=== PATIENT | female | born 1960 | race Caucasian/White ===

== ENCOUNTER 2019-11-07 12:07 | Observation (INO) | payer MEDICARE, MEDICAID ==
[~2019-11-07] VITALS: Ht 175.3 cm; Wt 136.4 kg
[~2019-11-07 12:07] MED LIST: DULO60CA65 PO; TRAZ-251 PO
[2019-11-07] MEDS ORDERED: aspirin 81mg tab.chew PO ONE (12:25)
[2019-11-07] MEDS: nitroGLYCERIN 0.4mg SUBLingual tab SL PRN ×2 (12:36→14:09)
[2019-11-07 12:57] LABS: BASOPHILS % (AUTO) 0.2 % (0-1); EOSINOPHILS # (AUTO) 0.3 X10'3 (0-0.9); EOSINOPHILS % (AUTO) 4.2 % (0-6); HEMATOCRIT 43.3 % (35.0-45.0); HEMOGLOBIN 14.5 g/dl (12.0-16.0); LYMPHOCYTES # (AUTO) 1.7 X10'3 (1.1-4.8); LYMPHOCYTES % (AUTO) 24.8 % (21-51); MEAN CORPUSCULAR HEMOGLOBIN 31.3 PG (27.0-31.0); MEAN CORPUSCULAR HGB CONC 33.6 g/dL (33.0-36.5); MEAN CORPUSCULAR VOLUME 93.3 FL (78-98); MEAN PLATELET VOLUME 7.7 FL (7.4-10.4); MONOCYTES # (AUTO) 0.6 X10'3 (0-0.9); MONOCYTES % (AUTO) 8.6 % (2-12); NEUTROPHILS # (AUTO) 4.3 X10'3 (1.8-7.7); NEUTROPHILS % (AUTO) 62.2 % (42-75); PLATELET COUNT 233 X10'3 (140-440); RED BLOOD COUNT 4.64 X10'6 (4.20-5.60); RED CELL DISTRIBUTION WIDTH 13.7 % (11.5-14.5); WHITE BLOOD COUNT 6.9 X10'3 (4.5-11.0)
[2019-11-07 13:00] LABS: D-DIMER 0.37 MG/L FEU (0-0.50)
[2019-11-07 13:12] LABS: ALANINE AMINOTRANSFERASE 25 U/L (12-78); ALBUMIN 3.2 G/DL (3.4-5.0); ALBUMIN/GLOBULIN RATIO 0.9 (1.1-1.5); ALKALINE PHOSPHATASE 64 IU/L (46-116); ANION GAP 5 (8-16); ASPARTATE AMINO TRANSFERASE 17 U/L (10-37); BILIRUBIN,TOTAL 0.3 MG/DL (0.1-1.0); BLOOD UREA NITROGEN 12 MG/DL (7-18); BUN/CREATININE RATIO 13.6 (6.6-38.0); CALCIUM 8.7 MG/DL (8.5-10.1); CHLORIDE 104 MMOL/L (99-107); CREATININE 0.88 MG/DL (0.40-0.90); GLUCOSE 95 MG/DL (70-104); SODIUM 138 MMOL/L (135-145); TOTAL CARBON DIOXIDE 29.3 MMOL/L (24-32); TOTAL PROTEIN 6.7 G/DL (6.4-8.2); eGFR 65 ML/MIN
[2019-11-07 13:14] LABS: POTASSIUM 4.1 MMOL/L (3.5-5.1)
[2019-11-07] MEDS ORDERED: acetaminophen 325mg tablet PO PRN (14:55)
[2019-11-07] MEDS ORDERED: aminophylline 250mg/10ml inj. IV PRN (14:55)
[2019-11-07] MEDS ORDERED: nitroGLYCERIN 0.4mg SUBLingual tab SL PRN ×2 (14:55→15:05)
[2019-11-07] MEDS ORDERED: mag hydrox/Alum hydrox/simeth 30ml oral suspension PO PRN (14:55)
[2019-11-07] MEDS ORDERED: magnesium hydroxide 30ml (MOM) UD suspension PO PRN (14:55)
[2019-11-07] MEDS ORDERED: regadenoson 0.4mg/5ml syringe IV PRN (14:55)
[2019-11-07] MEDS ORDERED: morphine 2 MG/ML inj. syringe IV PRN (14:55)
[2019-11-07] MEDS ORDERED: metoprolol tartrate 1mg/ml inj IV PRN (14:55)
[2019-11-07] MEDS ORDERED: ondansetron/PF 4mg/2ml inj IV PRN (14:55)
[2019-11-07] MEDS: normal saline 1000ml 1,000 ML IV SCH (15:25)
[2019-11-07] MEDS ORDERED: DULO60CA65 PO (15:36)
[2019-11-07] MEDS ORDERED: TRAZ-256 PO (15:36)
[2019-11-07 18:00] VITALS: BP 139/75
--- NOTE | 2019-11-07 18:10 | NUR ---
Patient in room MED 310. I have received report from ADELA RAZO and had the opportunity to ask questions and assume patient care.
[2019-11-07] MEDS: morphine 2 MG/ML inj. syringe IV PRN (19:55)
[2019-11-07] MEDS: heparin, porcine 5000 units/ml vial SQ SCH (19:59)
[2019-11-07] MEDS ORDERED: traZODone 50mg tablet PO SCH (21:00)
[2019-11-07 22:00] VITALS: BP 145/75
[2019-11-08] VITALS (12 sets, daily range): BP systolic 107–149; BP diastolic 68–77
[2019-11-08] MEDS: normal saline 1000ml 1,000 ML IV SCH (00:54)
[2019-11-08] MEDS: morphine 2 MG/ML inj. syringe IV PRN ×2 (00:56→07:15)
[2019-11-08 01:09] LABS: BASOPHILS # (AUTO) 0.1 X10'3 (0-0.2); BASOPHILS % (AUTO) 1.1 % (0-1); EOSINOPHILS # (AUTO) 0.3 X10'3 (0-0.9); EOSINOPHILS % (AUTO) 4.1 % (0-6); HEMATOCRIT 42.6 % (35.0-45.0); HEMOGLOBIN 14.4 g/dl (12.0-16.0); LYMPHOCYTES # (AUTO) 1.9 X10'3 (1.1-4.8); LYMPHOCYTES % (AUTO) 27.1 % (21-51); MEAN CORPUSCULAR HEMOGLOBIN 31.5 PG (27.0-31.0); MEAN CORPUSCULAR HGB CONC 33.9 g/dL (33.0-36.5); MEAN PLATELET VOLUME 8.1 FL (7.4-10.4); MONOCYTES # (AUTO) 0.6 X10'3 (0-0.9); MONOCYTES % (AUTO) 7.8 % (2-12); NEUTROPHILS # (AUTO) 4.3 X10'3 (1.8-7.7); NEUTROPHILS % (AUTO) 59.9 % (42-75); PLATELET COUNT 234 X10'3 (140-440); RED BLOOD COUNT 4.58 X10'6 (4.20-5.60); RED CELL DISTRIBUTION WIDTH 14.1 % (11.5-14.5); WHITE BLOOD COUNT 7.2 X10'3 (4.5-11.0)
[2019-11-08 01:27] LABS: ALBUMIN 3.2 G/DL (3.4-5.0); ANION GAP 8 (8-16); BLOOD UREA NITROGEN 13 MG/DL (7-18); BUN/CREATININE RATIO 17.1 (6.6-38.0); CALCIUM 9.1 MG/DL (8.5-10.1); CHLORIDE 105 MMOL/L (99-107); CREATININE 0.76 MG/DL (0.40-0.90); GLUCOSE 110 MG/DL (70-104); POTASSIUM 3.9 MMOL/L (3.5-5.1); SODIUM 139 MMOL/L (135-145); TOTAL CARBON DIOXIDE 26.4 MMOL/L (24-32); eGFR 77 ML/MIN
--- NOTE | 2019-11-08 06:30 | NUR ---
Problems reprioritized. Patient report given, questions answered & plan of care reviewed with ADELA RAZO.
[2019-11-08] MEDS ORDERED: duloxetine 30mg CAPSULE.DR PO SCH (08:00)
[2019-11-08] MEDS ORDERED: aspirin 81mg tablet.DR PO SCH (08:00)
[2019-11-08] MEDS ORDERED: atorvastatin 20mg tablet PO SCH (08:00)
[2019-11-08] MEDS: heparin, porcine 5000 units/ml vial SQ SCH (08:27)
== END 2019-11-08 14:56 | disposition home or self-care (01) ==
LOC: ER 12:07 → ED HOLD 14:54 → MED 3N 17:50
PROVIDERS: ADMIT Family Medicine; ATTEND Family Medicine
DX: R07.89 Other chest pain (principal); I10 Essential (primary) hypertension; E11.9 Type 2 diabetes mellitus without complications; I25.2 Old myocardial infarction; I25.10 Atherosclerotic heart disease of native coronary artery without angina pectoris; F31.9 Bipolar disorder, unspecified; Z79.899 Other long term (current) drug therapy
CPT/HCPCS: 36415; 71045; 78452; 80048; 80053; 82948; 83880; 84484; 85025; 85379; 87081; 93005; 93017; 93306; 96361; 96372; 96374; 96376; 99285; A9500; G0378; J1644; J2270; J2785; J7030

== ENCOUNTER 2019-11-30 09:28 | Emergency (ER) | payer MEDICARE, MEDICAID ==
[~2019-11-30] VITALS: Ht 175.3 cm; Wt 140.0 kg
[~2019-11-30 09:28] MED LIST changes: -TRAZ-251 PO; +TRAZ-256 PO
[2019-11-30 10:13] LABS: BASOPHILS # (AUTO) 0.1 X10'3 (0-0.2); BASOPHILS % (AUTO) 1.4 % (0-1); EOSINOPHILS # (AUTO) 0.3 X10'3 (0-0.9); EOSINOPHILS % (AUTO) 3.6 % (0-6); HEMATOCRIT 44.4 % (35.0-45.0); HEMOGLOBIN 14.9 g/dl (12.0-16.0); LYMPHOCYTES # (AUTO) 1.8 X10'3 (1.1-4.8); LYMPHOCYTES % (AUTO) 19.9 % (21-51); MEAN CORPUSCULAR HGB CONC 33.6 g/dL (33.0-36.5); MEAN CORPUSCULAR VOLUME 92.3 FL (78-98); MEAN PLATELET VOLUME 7.5 FL (7.4-10.4); MONOCYTES # (AUTO) 0.7 X10'3 (0-0.9); MONOCYTES % (AUTO) 8.3 % (2-12); NEUTROPHILS % (AUTO) 66.8 % (42-75); PLATELET COUNT 259 X10'3 (140-440); RED BLOOD COUNT 4.81 X10'6 (4.20-5.60); RED CELL DISTRIBUTION WIDTH 13.7 % (11.5-14.5); WHITE BLOOD COUNT 8.9 X10'3 (4.5-11.0)
[2019-11-30 10:35] LABS: ALANINE AMINOTRANSFERASE 29 U/L (12-78); ALBUMIN 3.5 G/DL (3.4-5.0); ALBUMIN/GLOBULIN RATIO 0.9 (1.1-1.5); ALKALINE PHOSPHATASE 70 IU/L (46-116); ANION GAP 8 (8-16); ASPARTATE AMINO TRANSFERASE 13 U/L (10-37); BILIRUBIN,TOTAL 0.4 MG/DL (0.1-1.0); BLOOD UREA NITROGEN 15 MG/DL (7-18); BUN/CREATININE RATIO 15.3 (6.6-38.0); CALCIUM 8.7 MG/DL (8.5-10.1); CHLORIDE 103 MMOL/L (99-107); CREATININE 0.98 MG/DL (0.40-0.90); GLUCOSE 81 MG/DL (70-104); POTASSIUM 3.4 MMOL/L (3.5-5.1); SODIUM 138 MMOL/L (135-145); TOTAL PROTEIN 7.5 G/DL (6.4-8.2); eGFR 58 ML/MIN
[2019-11-30 10:37] LABS: ETHANOL < 0.010 GM/DL (0.0-0.010)
[2019-11-30 10:40] LABS: ACETAMINOPHEN < 2.0 UG/ML (10-30)
[2019-11-30] MEDS ORDERED: potassium Cl 20 mEq SR tablet PO ONE (10:45)
[2019-11-30 11:00] LABS: URINE HCG NEGATIVE (NEG)
[2019-11-30 11:02] LABS: CLARITY,URINE SLIGHTLY CLOUDY (Clear); COLOR,URINE YELLOW (Yellow); GLUCOSE, URINE NEGATIVE (Neg); KETONES,URINE NEGATIVE (Neg); LEUKOCYTE ESTERASE ,URINE SMALL (Neg); NITRITES, URINE NEGATIVE (Neg); OCCULT BLOOD,URINE NEGATIVE (Neg); PROTEIN,URINE NEGATIVE (Neg); UROBILINOGEN,URINE 0.2 E.U/dL (0.2-1.0)
[2019-11-30 11:03] LABS: UA COLLECTION TYPE CLN CATCH MIDSTREAM
[2019-11-30] MEDS ORDERED: ketorolac trometh inj. 60 MG/2 ML VIAL IM ONE (11:05)
[2019-11-30 11:09] LABS: BACTERIA,URINE 1+ /HPF (Neg); SQUAMOUS EPITHELIAL CELL,UR MANY /LPF (FEW)
[2019-11-30 11:10] LABS: RBC,URINE 0-2 /HPF (0-2); WBC CLUMPS,URINE FEW /HPF (NEGATIVE)
[2019-11-30 11:15] LABS: URINE AMPHETAMINE SCREEN NEGATIVE (Neg); URINE BARBITUATE SCREEN NEGATIVE (Neg); URINE BENZODIAZEPINES SCREEN NEGATIVE (Neg); URINE CANNABINOID SCREEN NEGATIVE (Neg); URINE COCAINE SCREEN NEGATIVE (Neg); URINE METHADONE SCREEN NEGATIVE (Neg); URINE OPIATE SCREEN NEGATIVE (Neg); URINE PHENCYCLIDINE SCREEN NEGATIVE (Neg)
[2019-11-30] MEDS ORDERED: METO-395 PO (11:39)
[2019-11-30] MEDS ORDERED: NAPR-1166 PO (11:39)
[2019-11-30] MEDS ORDERED: TRAZ-251 PO ×2 (11:39→12:33)
[2019-11-30] MEDS ORDERED: traZODone 50mg tablet PO SCH ×2 (12:00→21:00)
[2019-11-30] MEDS: metoprolol succinate 25mg (24-HOUR) SR. Tablet PO SCH (12:40)
[2019-11-30] MEDS: naproxen 375mg tablet PO SCH (12:40)
--- NOTE | 2019-11-30 12:44 | NUR ---
Patient asleep and easily awakens to voice. Patient is pleasant and states she still feels like killing herself. Patient has depressed affect. Patient states she got in a fight with her sister and she is feeling bad about herself. Patient's fiance brought her in. Patient states she is getting next month. Continue to monitor.
--- NOTE | 2019-11-30 13:36 | NUR ---
PT ATE LUNCH AND IS NOW ON THE PHONE WITH FAMILY
--- NOTE | 2019-11-30 14:39 | NUR ---
Patient sleeping supine and snoring. No distress observed. Continue to monitor.
--- NOTE | 2019-11-30 16:20 | NUR ---
Patient ambulatory to BR, steady gait. No distress observed. Continue to monitor.
--- NOTE | 2019-11-30 16:55 | NUR ---
[facility]ish [facility] evaluating patient.
--- NOTE | 2019-11-30 17:31 | NUR ---
Patient has a 5150 placed by TYREL Hinojosa for DTS, as patient is still suicidal.
--- NOTE | 2019-11-30 18:54 | NUR ---
Patient ate most of her dinner and returned to sleep in a mid fowlers position.
--- NOTE | 2019-11-30 21:18 | NUR ---
Patient awoke and took NOC medications. She then ambulated to bathroom to void, no problem with ambulation. Patient tells this patient she is feeling depressed as she had an argument with her fiance. "I'm here to get myself better.
--- NOTE | 2019-11-30 23:24 | NUR ---
Patient sleeping in mid fowlers position. Snoring. In direct view from nursing station.
--- NOTE | 2019-12-01 01:53 | NUR ---
PT APPEARS TO HAVE SOME DIFFICULTY BREATHING WHILE SLEEPING. PT WOKEN UP EASILY. PT REPORTS A HX OF SLEEP APNEA. DOES NOT USE CPAP AT HOME. JOSE F RN SPOKE WITH JL. APPROVED ORDER FOR CPAP. PRIOR TO RESPIRATORY ARRIVAL, PT PLACED ON SPO2 MONITORING. ON ROOM AIR, PT DROPS DOWN TO 89% WHILE SLEEPING.
--- NOTE | 2019-12-01 02:13 | NUR ---
MEDARDO FROM RESPIRATORY AT BEDSIDE TO SET UP CPAP.
--- NOTE | 2019-12-01 03:15 | NUR ---
Patient sleeping quietly, mid fowlers position. CPAP in place.
--- NOTE | 2019-12-01 04:42 | NUR ---
Patient is sleeping quietly on CPAP. No noisy airway now that CPAP is in place. Good color, W/D, no distress.
--- NOTE | 2019-12-01 05:46 | NUR ---
Patient sleeping quietly on CPAP.
[2019-12-01 05:57] VITALS: BP 119/78
[2019-12-01] MEDS: cephalexin 250mg capsule PO SCH ×2 (07:10→08:00)
[2019-12-01] MEDS: naproxen 375mg tablet PO SCH (08:20)
[2019-12-01] MEDS: metoprolol succinate 25mg (24-HOUR) SR. Tablet PO SCH (08:20)
--- NOTE | 2019-12-01 08:24 | NUR ---
PT AWAKE EATING BREAKFAST. AM MEDS GIVEN. NO NEEDS AT THIS TIME
--- NOTE | 2019-12-01 09:03 | NUR ---
PT GIVEN HYGIENE BASIN
== END 2019-12-01 11:15 ==
LOC: ER 09:28
DX: N39.0 Urinary tract infection, site not specified (principal); R45.851 Suicidal ideations; I25.10 Atherosclerotic heart disease of native coronary artery without angina pectoris; I10 Essential (primary) hypertension; I25.2 Old myocardial infarction; F31.9 Bipolar disorder, unspecified; Z60.2 Problems related to living alone; Z59.0 Homelessness; Z79.899 Other long term (current) drug therapy
CPT/HCPCS: 36415; 80053; 80305; 80320; 80329; 81001; 81025; 84443; 85025; 94660; 96372; 99285; J1885; 94760

== ENCOUNTER → 2019-12-06 | Emergency (ER) | payer MEDICARE, MEDICAID ==
[~2019-12-06] VITALS: Ht 175.3 cm; Wt 136.8 kg
[~2019-12-06] MED LIST changes: -DULO60CA65 PO; +METO-395 PO; +NAPR-1166 PO; +QUET50TA22 PO; +TRAZ-251 PO; -TRAZ-256 PO; +VENL75TA4 PO; +metoprolol succinate 25mg (24-HOUR) SR. Tablet PO SCH; +naproxen 375mg tablet PO SCH; +traZODone 50mg tablet PO SCH
[2019-12-06 15:03] VITALS: BP 127/87
[2019-12-06 16:17] LABS: BASOPHILS # (AUTO) 0.1 X10'3 (0-0.2); BASOPHILS % (AUTO) 1.6 % (0-1); EOSINOPHILS # (AUTO) 0.5 X10'3 (0-0.9); EOSINOPHILS % (AUTO) 6.6 % (0-6); HEMATOCRIT 41.6 % (35.0-45.0); HEMOGLOBIN 14.1 g/dl (12.0-16.0); LYMPHOCYTES # (AUTO) 1.7 X10'3 (1.1-4.8); LYMPHOCYTES % (AUTO) 21.1 % (21-51); MEAN CORPUSCULAR HEMOGLOBIN 31.2 PG (27.0-31.0); MEAN CORPUSCULAR HGB CONC 33.9 g/dL (33.0-36.5); MEAN PLATELET VOLUME 7.6 FL (7.4-10.4); MONOCYTES # (AUTO) 0.5 X10'3 (0-0.9); MONOCYTES % (AUTO) 5.8 % (2-12); NEUTROPHILS # (AUTO) 5.2 X10'3 (1.8-7.7); NEUTROPHILS % (AUTO) 64.9 % (42-75); PLATELET COUNT 234 X10'3 (140-440); RED BLOOD COUNT 4.51 X10'6 (4.20-5.60); RED CELL DISTRIBUTION WIDTH 13.5 % (11.5-14.5)
[2019-12-06 16:26] LABS: COLOR,URINE YELLOW (Yellow); GLUCOSE, URINE NEGATIVE (Neg); KETONES,URINE NEGATIVE (Neg); LEUKOCYTE ESTERASE ,URINE TRACE (Neg); NITRITES, URINE NEGATIVE (Neg); OCCULT BLOOD,URINE NEGATIVE (Neg); PH,URINE 5.5 (4.8-8.0); PROTEIN,URINE NEGATIVE (Neg); UROBILINOGEN,URINE 0.2 E.U/dL (0.2-1.0)
[2019-12-06 16:29] LABS: ALANINE AMINOTRANSFERASE 26 U/L (12-78); ALBUMIN 3.2 G/DL (3.4-5.0); ALBUMIN/GLOBULIN RATIO 0.9 (1.1-1.5); ALKALINE PHOSPHATASE 59 IU/L (46-116); ANION GAP 9 (8-16); ASPARTATE AMINO TRANSFERASE 14 U/L (10-37); BILIRUBIN,TOTAL 0.3 MG/DL (0.1-1.0); BLOOD UREA NITROGEN 14 MG/DL (7-18); BUN/CREATININE RATIO 16.1 (6.6-38.0); CALCIUM 8.8 MG/DL (8.5-10.1); CHLORIDE 103 MMOL/L (99-107); CREATININE 0.87 MG/DL (0.40-0.90); GLUCOSE 94 MG/DL (70-104); SODIUM 137 MMOL/L (135-145); TOTAL CARBON DIOXIDE 24.8 MMOL/L (24-32); TOTAL PROTEIN 6.6 G/DL (6.4-8.2); eGFR 66 ML/MIN
[2019-12-06 16:33] LABS: URINE AMPHETAMINE SCREEN NEGATIVE (Neg); URINE BARBITUATE SCREEN NEGATIVE (Neg); URINE BENZODIAZEPINES SCREEN NEGATIVE (Neg); URINE CANNABINOID SCREEN NEGATIVE (Neg); URINE COCAINE SCREEN NEGATIVE (Neg); URINE METHADONE SCREEN NEGATIVE (Neg); URINE OPIATE SCREEN NEGATIVE (Neg); URINE PHENCYCLIDINE SCREEN NEGATIVE (Neg)
[2019-12-06 16:39] LABS: CLARITY,URINE SLIGHTLY CLOUDY (Clear); UA COLLECTION TYPE CLN CATCH MIDSTREAM
[2019-12-06 16:40] LABS: ETHANOL < 0.010 GM/DL (0.0-0.010)
[2019-12-06 16:41] LABS: RBC,URINE NONE SEEN /HPF (0-2)
[2019-12-06 16:42] LABS: BACTERIA,URINE 2+ /HPF (Neg); MUCUS STRANDS MODERATE /LPF (Neg); SQUAMOUS EPITHELIAL CELL,UR MODERATE /LPF (FEW)
--- NOTE | 2019-12-06 16:45 | NUR ---
PT IS CALM NO NEEDS AT THIS TIME, SUPINE IN BED, REGULAR BREATHING OBSERVED
--- NOTE | 2019-12-06 17:21 | NUR ---
FAXED PACKET [facility]
--- NOTE | 2019-12-06 17:48 | NUR ---
PT SUPINE IN BED, EYES CLOSED, REGULAR BREATHING OBSERVED
--- NOTE | 2019-12-06 18:51 | NUR ---
PT UP TO RESTROOM, STEADY GAIT. RETURNED TO BED AFTER COVERING HEAD WITH BLANKETS. IN NO APPARENT DISTRESS
--- NOTE | 2019-12-06 20:29 | NUR ---
[facility] at bedside
== END ==
LOC: ER 14:41
DX: F31.9 Bipolar disorder, unspecified (principal); R45.851 Suicidal ideations; I25.10 Atherosclerotic heart disease of native coronary artery without angina pectoris; I25.2 Old myocardial infarction; Z60.2 Problems related to living alone; Z56.0 Unemployment, unspecified; Z59.0 Homelessness; Z79.899 Other long term (current) drug therapy
CPT/HCPCS: 36415; 80053; 80305; 80320; 81001; 84443; 85025; 99285

== ENCOUNTER 2019-12-15 14:28 | Emergency (ER) | payer MEDICARE, MEDICAID ==
[~2019-12-15] VITALS: Ht 175.3 cm; Wt 136.0 kg
[~2019-12-15 14:28] MED LIST changes: -TRAZ-251 PO; -metoprolol succinate 25mg (24-HOUR) SR. Tablet PO SCH; -naproxen 375mg tablet PO SCH; -traZODone 50mg tablet PO SCH
--- NOTE | 2019-12-15 14:58 | NUR ---
PT USING RESTROOM AT THIS TIME.WE WILL COLLECT URINE SAMPLE.
[2019-12-15 15:10] LABS: URINE HCG NEGATIVE (NEG)
[2019-12-15 15:14] LABS: CLARITY,URINE SLIGHTLY CLOUDY (Clear); COLOR,URINE YELLOW (Yellow); GLUCOSE, URINE NEGATIVE (Neg); KETONES,URINE NEGATIVE (Neg); LEUKOCYTE ESTERASE ,URINE SMALL (Neg); NITRITES, URINE NEGATIVE (Neg); OCCULT BLOOD,URINE NEGATIVE (Neg); PROTEIN,URINE NEGATIVE (Neg); UROBILINOGEN,URINE 0.2 E.U/dL (0.2-1.0)
[2019-12-15 15:16] LABS: URINE AMPHETAMINE SCREEN NEGATIVE (Neg); URINE BARBITUATE SCREEN NEGATIVE (Neg); URINE BENZODIAZEPINES SCREEN NEGATIVE (Neg); URINE CANNABINOID SCREEN NEGATIVE (Neg); URINE COCAINE SCREEN NEGATIVE (Neg); URINE METHADONE SCREEN NEGATIVE (Neg); URINE OPIATE SCREEN NEGATIVE (Neg); URINE PHENCYCLIDINE SCREEN NEGATIVE (Neg)
[2019-12-15 15:18] LABS: UA COLLECTION TYPE VOIDED
[2019-12-15 15:20] LABS: SQUAMOUS EPITHELIAL CELL,UR MANY /LPF (FEW)
[2019-12-15 15:21] LABS: BACTERIA,URINE 1+ /HPF (Neg); WBC,URINE 20-30 /HPF (0-4)
[2019-12-15 15:22] LABS: RBC,URINE 0-2 /HPF (0-2); TRANSITIONAL EPI CELLS,URINE FEW /HPF
--- NOTE | 2019-12-15 15:40 | NUR ---
PT BIB [facility] TO ER FOR SI ,PT WAS HERE ON WEDNESDAY AND WAS D/C THE SAME DAY ,PT AND THOMAS LIVES AT [place],PT STATED THAT SHE HAS PREVIOUS HX OF SUCIDAL ATTEMPT BY TAKING 39 TAB OF TRAZADONE ,PT STATED THAT SHE IS TIRED OF HER LIFE AND WANT TO END BY LIFE ,PT STATED THAT"JENISE MUCH IS GOING ON RGT NOW"PT STATED THAT SHE IS VERY EMOTIONAL ,PT SAID SHE IS SUPPOSED TO GET NEXT MONTH BUT SHE IS PUTTING EVERYTHING BEHIND AND THINKING OF COMMITTING SUICIDE .
[2019-12-15 15:41] LABS: BASOPHILS # (AUTO) 0.1 X10'3 (0-0.2); BASOPHILS % (AUTO) 1.3 % (0-1); EOSINOPHILS # (AUTO) 0.5 X10'3 (0-0.9); EOSINOPHILS % (AUTO) 5.4 % (0-6); HEMATOCRIT 43.8 % (35.0-45.0); HEMOGLOBIN 14.7 g/dl (12.0-16.0); LYMPHOCYTES % (AUTO) 23.8 % (21-51); MEAN CORPUSCULAR HEMOGLOBIN 30.6 PG (27.0-31.0); MEAN CORPUSCULAR HGB CONC 33.5 g/dL (33.0-36.5); MEAN CORPUSCULAR VOLUME 91.1 FL (78-98); MEAN PLATELET VOLUME 7.9 FL (7.4-10.4); MONOCYTES # (AUTO) 0.7 X10'3 (0-0.9); MONOCYTES % (AUTO) 8.9 % (2-12); NEUTROPHILS % (AUTO) 60.6 % (42-75); PLATELET COUNT 226 X10'3 (140-440); RED CELL DISTRIBUTION WIDTH 13.5 % (11.5-14.5); WHITE BLOOD COUNT 8.3 X10'3 (4.5-11.0)
[2019-12-15 16:00] LABS: ALANINE AMINOTRANSFERASE 25 U/L (12-78); ALBUMIN 3.5 G/DL (3.4-5.0); ALKALINE PHOSPHATASE 65 IU/L (46-116); ANION GAP 8 (8-16); ASPARTATE AMINO TRANSFERASE 14 U/L (10-37); BILIRUBIN,TOTAL 0.3 MG/DL (0.1-1.0); BLOOD UREA NITROGEN 23 MG/DL (7-18); CALCIUM 8.9 MG/DL (8.5-10.1); CHLORIDE 104 MMOL/L (99-107); CREATININE 0.92 MG/DL (0.40-0.90); ETHANOL < 0.010 GM/DL (0.0-0.010); GLUCOSE 101 MG/DL (70-104); POTASSIUM 4.3 MMOL/L (3.5-5.1); SODIUM 139 MMOL/L (135-145); TOTAL CARBON DIOXIDE 26.9 MMOL/L (24-32); TOTAL PROTEIN 7.1 G/DL (6.4-8.2); eGFR 62 ML/MIN
--- NOTE | 2019-12-15 16:13 | NUR ---
PT SLEEPING IN THE BED AT THIS TIME.
--- NOTE | 2019-12-15 17:29 | NUR ---
PACKET FAXED TO [facility]
--- NOTE | 2019-12-15 18:41 | NUR ---
PT SPEAKING WITH [facility] REP. PT DOES NOT SEEM TO BE IN ANY DISTRESS OR DISCOMFORT. PT'S - ROBY MEDINA- CALLED FOR PT, WILL HAVE HER CALL HIM BACK [phone].
--- NOTE | 2019-12-15 18:44 | NUR ---
RECIEVED A CALL FROM THE [facility] OFFICE- PT IS ACCEPTED AT [facility]. DUNG FOLEY UPDATED.
--- NOTE | 2019-12-15 18:51 | NUR ---
DUNG JEAN FROM [facility] HERE TO SEE IF PT WOULD LIKE TO BE ADMITTED ON VOLUNTARY STATUS. PT AGREES AND WILL BE GOING UP AROUND 2100 TONIGHT.
--- NOTE | 2019-12-15 20:20 | NUR ---
PT RESTING IN BED AND DOES NOT SEEM TO BE IN ANY DISTRESS OR DISCOMFORT. PT'S FIANCE CALLED AND RN ABLE TO UPDATE HIM. WILL CONT TO MONITOR.
--- NOTE | 2019-12-15 21:06 | NUR ---
PT RESTING IN BED AND IS NOT SHOWING SIGNS OF DISCOMFORT. WILL CONT TO MONITOR.
[2019-12-15 21:44] VITALS: BP 150/91
[2019-12-15] MEDS ORDERED: NAPR375T5 PO (22:07)
[2019-12-15] MEDS ORDERED: QUET50TA22 PO (22:08)
[2019-12-15] MEDS ORDERED: VENL75TA4 PO (22:09)
== END 2019-12-15 21:46 ==
LOC: ER 14:29
DX: R45.851 Suicidal ideations (principal); I25.10 Atherosclerotic heart disease of native coronary artery without angina pectoris; I10 Essential (primary) hypertension; I25.2 Old myocardial infarction; F31.9 Bipolar disorder, unspecified; Z60.2 Problems related to living alone; Z59.0 Homelessness; Z56.0 Unemployment, unspecified; Z79.899 Other long term (current) drug therapy
CPT/HCPCS: 36415; 80053; 80305; 80320; 81001; 81025; 85025; 99285

== ENCOUNTER 2020-01-01 09:31 | Emergency (ER) | payer MEDICARE, MEDICAID ==
[~2020-01-01] VITALS: Ht 175.3 cm; Wt 145.8 kg
[~2020-01-01 09:31] MED LIST changes: +ATOR20TA66 PO; +LAMO25TA5 PO; -METO-395 PO; -NAPR-1166 PO; +NAPR375T5 PO; +QUET25TA34 PO; -QUET50TA22 PO; +TEN1T PO; +VENL150T3 PO; -VENL75TA4 PO
--- NOTE | 2020-01-01 09:45 | NUR ---
pt came over to overflow
[2020-01-01] MEDS ORDERED: QUET25TA PO (10:19)
[2020-01-01] MEDS ORDERED: TEN1T PO (10:19)
[2020-01-01] MEDS ORDERED: VENL150C2 PO (10:19)
[2020-01-01] MEDS ORDERED: LAMO25TA72 PO (10:19)
[2020-01-01] MEDS ORDERED: ATOR20TA66 PO (10:19)
[2020-01-01 10:21] LABS: CLARITY,URINE SLIGHTLY CLOUDY (Clear); COLOR,URINE YELLOW (Yellow); GLUCOSE, URINE NEGATIVE (Neg); KETONES,URINE NEGATIVE (Neg); LEUKOCYTE ESTERASE ,URINE SMALL (Neg); NITRITES, URINE NEGATIVE (Neg); OCCULT BLOOD,URINE NEGATIVE (Neg); PH,URINE 6.5 (4.8-8.0); PROTEIN,URINE NEGATIVE (Neg); UROBILINOGEN,URINE 0.2 E.U/dL (0.2-1.0)
[2020-01-01 10:24] LABS: URINE HCG NEGATIVE (NEG)
[2020-01-01 10:26] LABS: UA COLLECTION TYPE CLN CATCH MIDSTREAM
[2020-01-01 10:27] LABS: BACTERIA,URINE 1+ /HPF (Neg); RBC,URINE NONE SEEN /HPF (0-2); SQUAMOUS EPITHELIAL CELL,UR MANY /LPF (FEW)
[2020-01-01 10:29] LABS: URINE AMPHETAMINE SCREEN NEGATIVE (Neg); URINE BARBITUATE SCREEN NEGATIVE (Neg); URINE BENZODIAZEPINES SCREEN NEGATIVE (Neg); URINE CANNABINOID SCREEN NEGATIVE (Neg); URINE COCAINE SCREEN NEGATIVE (Neg); URINE METHADONE SCREEN NEGATIVE (Neg); URINE OPIATE SCREEN NEGATIVE (Neg); URINE PHENCYCLIDINE SCREEN NEGATIVE (Neg)
[2020-01-01 10:59] LABS: BASOPHILS % (AUTO) 0.5 % (0-1); EOSINOPHILS # (AUTO) 0.5 X10'3 (0-0.9); EOSINOPHILS % (AUTO) 7.4 % (0-6); HEMATOCRIT 42.8 % (35.0-45.0); HEMOGLOBIN 14.4 g/dl (12.0-16.0); LYMPHOCYTES # (AUTO) 1.5 X10'3 (1.1-4.8); LYMPHOCYTES % (AUTO) 23.2 % (21-51); MEAN CORPUSCULAR HEMOGLOBIN 30.7 PG (27.0-31.0); MEAN CORPUSCULAR HGB CONC 33.7 g/dL (33.0-36.5); MEAN CORPUSCULAR VOLUME 91.1 FL (78-98); MEAN PLATELET VOLUME 7.3 FL (7.4-10.4); MONOCYTES # (AUTO) 0.5 X10'3 (0-0.9); NEUTROPHILS % (AUTO) 60.9 % (42-75); PLATELET COUNT 222 X10'3 (140-440); RED BLOOD COUNT 4.69 X10'6 (4.20-5.60); RED CELL DISTRIBUTION WIDTH 13.4 % (11.5-14.5); WHITE BLOOD COUNT 6.5 X10'3 (4.5-11.0)
--- NOTE | 2020-01-01 11:00 | NUR ---
pt is resting
[2020-01-01 11:08] LABS: ALANINE AMINOTRANSFERASE 25 U/L (12-78); ALBUMIN 3.1 G/DL (3.4-5.0); ALBUMIN/GLOBULIN RATIO 0.8 (1.1-1.5); ALKALINE PHOSPHATASE 67 IU/L (46-116); ANION GAP 8 (8-16); ASPARTATE AMINO TRANSFERASE 19 U/L (10-37); BILIRUBIN,TOTAL 0.4 MG/DL (0.1-1.0); BLOOD UREA NITROGEN 11 MG/DL (7-18); BUN/CREATININE RATIO 11.6 (6.6-38.0); CALCIUM 8.9 MG/DL (8.5-10.1); CHLORIDE 104 MMOL/L (99-107); CREATININE 0.95 MG/DL (0.40-0.90); GLUCOSE 81 MG/DL (70-104); POTASSIUM 4.2 MMOL/L (3.5-5.1); SODIUM 139 MMOL/L (135-145); TOTAL CARBON DIOXIDE 27.1 MMOL/L (24-32); TOTAL PROTEIN 6.8 G/DL (6.4-8.2); eGFR 60 ML/MIN
[2020-01-01 11:17] LABS: ETHANOL < 0.010 GM/DL (0.0-0.010)
--- NOTE | 2020-01-01 11:44 | NUR ---
PACKET FAX [facility]
--- NOTE | 2020-01-01 12:00 | NUR ---
pt is resting no issues at this time
--- NOTE | 2020-01-01 13:00 | NUR ---
pt is meeting with [facility]
--- NOTE | 2020-01-01 14:00 | NUR ---
pt is sleeping
--- NOTE | 2020-01-01 15:00 | NUR ---
pt is sleeping
--- NOTE | 2020-01-01 16:00 | NUR ---
pt is sleeping
--- NOTE | 2020-01-01 17:09 | NUR ---
pt is sleeping
[2020-01-01] MEDS: guanFACINE 1 mg tablet PO SCH (20:19)
--- NOTE | 2020-01-01 20:22 | NUR ---
lab called-pt negative for covid, pharmacist in charge owner franklin, and aniya duncan nurse updated
--- NOTE | 2020-01-01 20:44 | NUR ---
Pt has been accepted at [facility] in [place]. Pt is awaiting transport.
[2020-01-01] MEDS ORDERED: QUEtiapine 25mg tablet PO SCH (21:00)
--- NOTE | 2020-01-01 21:42 | NUR ---
pt is sleeping, snoring at times. no s/s distress noted.
--- NOTE | 2020-01-02 02:11 | NUR ---
Assumed care of Pt from DUNG Santana. Pt awakened aprox 1 hr ago and got up to use BR and requested pitcher of water. She then lay back down on the bed and went back to sleep. Pt with obvious sleep apnea and constant snoring, apnic episodes, at times lasting up to 20 seconds. Pt reportedly has refused any cpap interventions in past, per Max.
--- NOTE | 2020-01-02 04:02 | NUR ---
Pt has woken up and is sitting at edge of bed, dangling legs. Appears sleepy still. Denies any needs at this time. Sitter and Rn within view of Pt AAT.
--- NOTE | 2020-01-02 05:04 | NUR ---
Pt sleeping again, lying on her back with blankets covering to her waist. Snoring continuously. Apnic episodes continue.
--- NOTE | 2020-01-02 06:39 | NUR ---
Received pt. sleeping on her back, HOB elevated and rr even and unlabored.
[2020-01-02] MEDS: guanFACINE 1 mg tablet PO SCH (07:59)
[2020-01-02] MEDS ORDERED: atorvastatin 20mg tablet PO SCH (08:00)
[2020-01-02] MEDS ORDERED: venlafaxine XR 75mg capsule (Q24H) PO SCH (08:00)
[2020-01-02] MEDS ORDERED: lamoTRIgine 25mg tablet PO SCH (08:00)
[2020-01-02] MEDS ORDERED: naproxen 375mg tablet PO SCH (08:00)
--- NOTE | 2020-01-02 08:30 | NUR ---
Pt. compliant with all medications and breakfast, she returns back to sleep. Appears to be resting comfortably
--- NOTE | 2020-01-02 08:35 | NUR ---
Pt. discharged to [facility] at this time. She was walked out to waiting vehicle accompanied by coach tour driver and security. Pt. is able to contract for safety, and reports she has a lot to live for just needs help at this time.
[2020-01-02 10:20] VITALS: BP 151/89
== END 2020-01-02 10:25 ==
LOC: ER 09:32
DX: R45.851 Suicidal ideations (principal); I25.10 Atherosclerotic heart disease of native coronary artery without angina pectoris; I10 Essential (primary) hypertension; F31.9 Bipolar disorder, unspecified; F32.9 Major depressive disorder, single episode, unspecified; I21.9 Acute myocardial infarction, unspecified; Z20.828 Contact with and (suspected) exposure to other viral communicable diseases; Z59.0 Homelessness; Z56.0 Unemployment, unspecified; Z79.899 Other long term (current) drug therapy
CPT/HCPCS: 36415; 80053; 80305; 80320; 81001; 81025; 84443; 85025; 87635; 99285; C9803

== ENCOUNTER 2020-02-09 08:32 | Emergency (ER) | payer MEDICARE, MEDICAID ==
[~2020-02-09] VITALS: Ht 175.3 cm; Wt 136.8 kg
[~2020-02-09 08:32] MED LIST changes: -LAMO25TA5 PO; +LAMO25TA72 PO; +QUET25TA PO; -QUET25TA34 PO; +VENL150C2 PO; -VENL150T3 PO
[2020-02-09] MEDS ORDERED: pantoprazole 40mg Tablet.DR PO ONE (09:30)
[2020-02-09] MEDS ORDERED: ondansetron 4mg rapidly disintigrating tab PO ONE (09:30)
[2020-02-09 09:54] LABS: CLARITY,URINE SLIGHTLY CLOUDY (Clear); COLOR,URINE YELLOW (Yellow); GLUCOSE, URINE NEGATIVE (Neg); KETONES,URINE NEGATIVE (Neg); LEUKOCYTE ESTERASE ,URINE SMALL (Neg); NITRITES, URINE NEGATIVE (Neg); OCCULT BLOOD,URINE NEGATIVE (Neg); PROTEIN,URINE NEGATIVE (Neg)
[2020-02-09 09:55] LABS: UA COLLECTION TYPE CLN CATCH MIDSTREAM
[2020-02-09 10:04] LABS: TRANSITIONAL EPI CELLS,URINE FEW /HPF
[2020-02-09 10:05] LABS: BACTERIA,URINE FEW /HPF (Neg); MUCUS STRANDS FEW /LPF (Neg); RENAL CELLS, URINE FEW /HPF; SQUAMOUS EPITHELIAL CELL,UR MANY /LPF (FEW)
[2020-02-09 10:07] LABS: RBC,URINE 0-2 /HPF (0-2); WBC,URINE 30-50 /HPF (0-4)
[2020-02-09] MEDS ORDERED: ONDA8TAB13 PO (11:29)
[2020-02-09 11:42] VITALS: BP 126/78
== END 2020-02-09 11:48 | disposition home or self-care (01) ==
LOC: ER 08:32
DX: K52.9 Noninfective gastroenteritis and colitis, unspecified (principal); Z20.828 Contact with and (suspected) exposure to other viral communicable diseases; I51.9 Heart disease, unspecified; I10 Essential (primary) hypertension; F31.9 Bipolar disorder, unspecified
CPT/HCPCS: 81001; 99283

== ENCOUNTER 2020-02-28 08:24 | Emergency (ER) | payer MEDICARE, MEDICAID ==
[~2020-02-28] VITALS: Ht 175.3 cm; Wt 137.7 kg
[~2020-02-28 08:24] MED LIST changes: +ONDA8TAB13 PO
[2020-02-28 08:30] VITALS: BP 166/82
[2020-02-28] MEDS ORDERED: naproxen 500mg tablet PO ONE (08:50)
[2020-02-28] MEDS ORDERED: mag hydrox/Alum hydrox/simeth 30ml oral suspension PO ONE (08:50)
[2020-02-28] MEDS ORDERED: NAPR-56 PO (08:53)
== END 2020-02-28 09:28 | disposition home or self-care (01) ==
LOC: ER 08:25
DX: T14.8XXA Other injury of unspecified body region, initial encounter (principal); R10.32 Left lower quadrant pain; R05 Cough; J02.9 Acute pharyngitis, unspecified; I25.10 Atherosclerotic heart disease of native coronary artery without angina pectoris; I10 Essential (primary) hypertension; I25.2 Old myocardial infarction; F31.9 Bipolar disorder, unspecified; Z60.2 Problems related to living alone; Z59.0 Homelessness; Z56.0 Unemployment, unspecified; Z79.899 Other long term (current) drug therapy; X58.XXXA Exposure to other specified factors, initial encounter; Y93.89 Activity, other specified; Y92.89 Other specified places as the place of occurrence of the external cause; Y99.8 Other external cause status
CPT/HCPCS: 99283

== ENCOUNTER 2020-03-29 13:27 | Emergency (ER) | payer MEDICARE, MEDICAID ==
[~2020-03-29] VITALS: Ht 175.3 cm; Wt 127.3 kg
[~2020-03-29 13:27] MED LIST changes: +NAPR-56 PO
[2020-03-29 14:00] VITALS: BP 144/84
[2020-03-29] MEDS ORDERED: ACET-3067 PO (15:45)
== END 2020-03-29 16:07 | disposition home or self-care (01) ==
LOC: ER 13:28
DX: M54.5 Low back pain (principal); I25.10 Atherosclerotic heart disease of native coronary artery without angina pectoris; I10 Essential (primary) hypertension; I25.2 Old myocardial infarction; F31.9 Bipolar disorder, unspecified; Z60.2 Problems related to living alone; Z59.0 Homelessness; Z56.0 Unemployment, unspecified; Z79.899 Other long term (current) drug therapy
CPT/HCPCS: 99283

== ENCOUNTER 2020-05-15 09:24 | Emergency (ER) | payer MEDICARE, MEDICAID ==
[~2020-05-15] VITALS: Ht 175.3 cm; Wt 139.5 kg
[2020-05-15 10:07] LABS: BASOPHILS # (AUTO) 0.1 X10'3 (0-0.2); BASOPHILS % (AUTO) 1.1 % (0-1); EOSINOPHILS # (AUTO) 0.2 X10'3 (0-0.9); HEMATOCRIT 45.3 % (35.0-45.0); LYMPHOCYTES # (AUTO) 1.5 X10'3 (1.1-4.8); LYMPHOCYTES % (AUTO) 23.2 % (21-51); MEAN CORPUSCULAR HEMOGLOBIN 29.4 PG (27.0-31.0); MEAN CORPUSCULAR HGB CONC 33.2 g/dL (33.0-36.5); MEAN CORPUSCULAR VOLUME 88.8 FL (78-98); MEAN PLATELET VOLUME 7.8 FL (7.4-10.4); MONOCYTES # (AUTO) 0.5 X10'3 (0-0.9); MONOCYTES % (AUTO) 7.8 % (2-12); NEUTROPHILS # (AUTO) 4.1 X10'3 (1.8-7.7); NEUTROPHILS % (AUTO) 64.9 % (42-75); PLATELET COUNT 244 X10'3 (140-440); RED CELL DISTRIBUTION WIDTH 14.2 % (11.5-14.5); WHITE BLOOD COUNT 6.3 X10'3 (4.5-11.0)
[2020-05-15 10:21] LABS: ALBUMIN 3.6 G/DL (3.4-5.0); ALBUMIN/GLOBULIN RATIO 0.8 (1.1-1.5); ALKALINE PHOSPHATASE 76 IU/L (46-116); ANION GAP 8 (8-16); ASPARTATE AMINO TRANSFERASE 14 U/L (10-37); BILIRUBIN,TOTAL 0.4 MG/DL (0.1-1.0); BLOOD UREA NITROGEN 13 MG/DL (7-18); BUN/CREATININE RATIO 14.1 (6.6-38.0); CALCIUM 9.9 MG/DL (8.5-10.1); CHLORIDE 105 MMOL/L (99-107); CREATININE 0.92 MG/DL (0.40-0.90); GLUCOSE 95 MG/DL (70-104); SODIUM 141 MMOL/L (135-145); TOTAL CARBON DIOXIDE 27.7 MMOL/L (24-32); TOTAL PROTEIN 7.9 G/DL (6.4-8.2); eGFR 62 ML/MIN
--- NOTE | 2020-05-15 10:30 | NUR ---
Pt. brought herself to ER via local transpotation. Arrived to unit ambulating with steady gait. Pt. states her fiance recetly ended their relationship and she has been feeling suicidal. She planned on finding a gun and shooting herself. She lives at the [place] and has no means of accessing a gun, she said if she couldnt find a gun she would attempt to overdose on her medications. Pt. states she has a history of suicidal attempts, overdosing on her medicaitons in 2009. Pt. is resting supine in bed, no distress noted. Will continue to monitor.
[2020-05-15 10:32] LABS: ALANINE AMINOTRANSFERASE 29 U/L (12-78); ETHANOL < 0.010 GM/DL (0.0-0.010)
[2020-05-15 12:11] LABS: CLARITY,URINE SLIGHTLY CLOUDY (Clear); COLOR,URINE YELLOW (Yellow); GLUCOSE, URINE NEGATIVE (Neg); KETONES,URINE NEGATIVE (Neg); LEUKOCYTE ESTERASE ,URINE SMALL (Neg); NITRITES, URINE NEGATIVE (Neg); OCCULT BLOOD,URINE NEGATIVE (Neg); PROTEIN,URINE NEGATIVE (Neg)
[2020-05-15 12:15] LABS: UA COLLECTION TYPE CLN CATCH MIDSTREAM
[2020-05-15 12:17] LABS: URINE AMPHETAMINE SCREEN NEGATIVE (Neg); URINE BARBITUATE SCREEN NEGATIVE (Neg); URINE BENZODIAZEPINES SCREEN NEGATIVE (Neg); URINE CANNABINOID SCREEN NEGATIVE (Neg); URINE COCAINE SCREEN NEGATIVE (Neg); URINE METHADONE SCREEN NEGATIVE (Neg); URINE OPIATE SCREEN NEGATIVE (Neg); URINE PHENCYCLIDINE SCREEN NEGATIVE (Neg)
[2020-05-15 12:29] LABS: SQUAMOUS EPITHELIAL CELL,UR MANY /LPF (FEW)
[2020-05-15 12:30] LABS: RBC,URINE 0-2 /HPF (0-2)
--- NOTE | 2020-05-15 12:30 | NUR ---
Pt. resting in bed, in no distress. Will continue to monitor.
[2020-05-15 12:31] LABS: BACTERIA,URINE 1+ /HPF (Neg)
--- NOTE | 2020-05-15 12:55 | NUR ---
FAXED PACKET [facility]
--- NOTE | 2020-05-15 14:33 | NUR ---
Pt. resting supine in her bed. No distress noted. Will continue to monitor.
[2020-05-15] MEDS ORDERED: ATOR10TA87 PO (14:43)
[2020-05-15] MEDS ORDERED: LOSA25TA96 PO (14:45)
--- NOTE | 2020-05-15 16:00 | NUR ---
Pt. placed on 5150 by [facility] for danger to self. 5150 faxed to [place] office.
--- NOTE | 2020-05-15 16:07 | NUR ---
Covid test obtained, pt. tolerated well. Pt. resting in bed with eyes awake. No distress noted. Will continue to monitor.
--- NOTE | 2020-05-15 18:02 | NUR ---
Pt. eating dinner at bedside. No distress noted. Will continue to monitor.
--- NOTE | 2020-05-15 18:30 | NUR ---
Patient is sitting up in bed finishing dinner. Affect is flat. Patient Tells this staff writer that she is depressed as she has had a failed relationship.
--- NOTE | 2020-05-15 19:40 | NUR ---
Patient remains awake, no distress. She feels suicidal but denies a plan. Patient desires admit to behavioral health. Patient denies any hallucinations.
[2020-05-15] MEDS: guanFACINE 1 mg tablet PO SCH (20:36)
--- NOTE | 2020-05-15 20:40 | NUR ---
Patient remains awake, in view from nurses station. She is cooperative. Frequent rounding for patient safety.
--- NOTE | 2020-05-15 20:53 | NUR ---
Patient was compliant with night time medications. She is now sleeping, obstructive sounding sleep apnea is present. Patient position raised to a mid fowlers position, noisy respirations subsided. Patient tollerated new bed position well.
[2020-05-15] MEDS ORDERED: atorvastatin 20mg tablet PO SCH (21:00)
[2020-05-15] MEDS ORDERED: QUEtiapine 25mg tablet PO SCH (21:00)
--- NOTE | 2020-05-15 21:37 | NUR ---
Patient is sleeping quietly. In view from the nurses station.
--- NOTE | 2020-05-15 22:40 | NUR ---
Patient continues to sleep well. She has self repositioned in bed.
--- NOTE | 2020-05-15 23:30 | NUR ---
Patient sleeping on her left side now. No distress. In view from nurses station.
--- NOTE | 2020-05-16 01:20 | NUR ---
Patient has slumped down in bed, respirations are noisy. This sports writer awoke the patient. She was placed higher in bed, the bed was then re elevated. Patient tollerated well.
--- NOTE | 2020-05-16 02:32 | NUR ---
Patient sleeping quietly. Good color. Respirations are unlabored.
--- NOTE | 2020-05-16 03:40 | NUR ---
Patient once again slumped down in bed and was having snoring respirations. Patient lowered in bed, repositioned, and raised up in bed again. Patient tollerated well.
--- NOTE | 2020-05-16 04:47 | NUR ---
Patient is sleeping quietley. No distress.
[2020-05-16 06:21] VITALS: BP_DIAS 79
--- NOTE | 2020-05-16 06:42 | NUR ---
Patient sleeping supine with occasional snoring. Continue to monitor.
[2020-05-16] MEDS ORDERED: lamoTRIgine 25mg tablet PO SCH (08:00)
[2020-05-16] MEDS ORDERED: losartan 25mg tablet PO SCH (08:00)
[2020-05-16] MEDS ORDERED: venlafaxine XR 75mg capsule (Q24H) PO SCH (08:00)
[2020-05-16 08:34] VITALS: BP_SYST 139
[2020-05-16] MEDS: guanFACINE 1 mg tablet PO SCH (08:36)
== END 2020-05-16 09:48 | disposition home or self-care (01) ==
LOC: ER 09:25
DX: R45.851 Suicidal ideations (principal); F31.9 Bipolar disorder, unspecified; I25.10 Atherosclerotic heart disease of native coronary artery without angina pectoris; I10 Essential (primary) hypertension; I25.2 Old myocardial infarction; Z60.2 Problems related to living alone; Z56.0 Unemployment, unspecified; Z59.0 Homelessness; Z79.899 Other long term (current) drug therapy
CPT/HCPCS: 36415; 80053; 80305; 80320; 81001; 84443; 85025; 87426; 99285

== ENCOUNTER 2021-05-18 16:29 | Emergency (ER) | payer MEDICARE, MEDICAID ==
[~2021-05-18 16:29] MED LIST changes: -ATOR20TA66 PO; +LAMO25TA5 PO; -LAMO25TA72 PO; +LOSA25TA41 PO; -NAPR-56 PO; -NAPR375T5 PO; -ONDA8TAB13 PO; +QUET100T34 PO; -QUET25TA PO; -VENL150C2 PO; +VENL150T3 PO
[2021-05-18 18:26] LABS: BASOPHILS # (AUTO) 0.1 X10'3 (0-0.2); BASOPHILS % (AUTO) 0.8 % (0-1); EOSINOPHILS # (AUTO) 0.3 X10'3 (0-0.9); EOSINOPHILS % (AUTO) 2.8 % (0-6); HEMATOCRIT 42.8 % (35.0-45.0); HEMOGLOBIN 14.5 g/dl (12.0-16.0); LYMPHOCYTES # (AUTO) 1.5 X10'3 (1.1-4.8); LYMPHOCYTES % (AUTO) 13.9 % (21-51); MEAN CORPUSCULAR HEMOGLOBIN 30.2 PG (27.0-31.0); MEAN CORPUSCULAR HGB CONC 33.9 g/dL (33.0-36.5); MEAN CORPUSCULAR VOLUME 89.1 FL (78-98); MEAN PLATELET VOLUME 7.6 FL (7.4-10.4); MONOCYTES # (AUTO) 0.9 X10'3 (0-0.9); MONOCYTES % (AUTO) 8.7 % (2-12); NEUTROPHILS % (AUTO) 73.8 % (42-75); PLATELET COUNT 243 X10'3 (140-440); RED CELL DISTRIBUTION WIDTH 14.2 % (11.5-14.5); WHITE BLOOD COUNT 10.8 X10'3 (4.5-11.0)
[2021-05-18 18:33] LABS: CLARITY,URINE SLIGHTLY CLOUDY (Clear); COLOR,URINE YELLOW (Yellow); GLUCOSE, URINE NEGATIVE (Neg); KETONES,URINE NEGATIVE (Neg); LEUKOCYTE ESTERASE ,URINE TRACE (Neg); NITRITES, URINE NEGATIVE (Neg); OCCULT BLOOD,URINE NEGATIVE (Neg); PROTEIN,URINE NEGATIVE (Neg); URINE AMPHETAMINE SCREEN NEGATIVE (Neg); URINE BARBITUATE SCREEN NEGATIVE (Neg); URINE BENZODIAZEPINES SCREEN NEGATIVE (Neg); URINE CANNABINOID SCREEN NEGATIVE (Neg); URINE COCAINE SCREEN NEGATIVE (Neg); URINE METHADONE SCREEN NEGATIVE (Neg); URINE OPIATE SCREEN NEGATIVE (Neg); URINE PHENCYCLIDINE SCREEN NEGATIVE (Neg); UROBILINOGEN,URINE 0.2 E.U/dL (0.2-1.0)
[2021-05-18 18:33] LABS: ALANINE AMINOTRANSFERASE 18 U/L (12-78); ALBUMIN 3.2 G/DL (3.4-5.0); ALBUMIN/GLOBULIN RATIO 0.8 (1.1-1.5); ALKALINE PHOSPHATASE 76 IU/L (46-116); ANION GAP 10 (8-16); ASPARTATE AMINO TRANSFERASE 8 U/L (10-37); BILIRUBIN,TOTAL 0.3 MG/DL (0.1-1.0); BLOOD UREA NITROGEN 9 MG/DL (7-18); BUN/CREATININE RATIO 10.3 (6.6-38.0); CALCIUM 8.9 MG/DL (8.5-10.1); CHLORIDE 101 MMOL/L (99-107); CREATININE 0.87 MG/DL (0.40-0.90); GLUCOSE 103 MG/DL (70-104); POTASSIUM 3.8 MMOL/L (3.5-5.1); SODIUM 139 MMOL/L (135-145); TOTAL CARBON DIOXIDE 28.2 MMOL/L (24-32); eGFR 66 ML/MIN
[2021-05-18 18:41] LABS: ETHANOL < 0.010 GM/DL (0.0-0.010); MAGNESIUM 2.2 MG/DL (1.5-2.4)
[2021-05-18 18:49] LABS: UA COLLECTION TYPE CLN CATCH MIDSTREAM
[2021-05-18 18:50] LABS: BACTERIA,URINE FEW /HPF (Neg); MUCUS STRANDS FEW /LPF (Neg); RBC,URINE NONE SEEN /HPF (0-2); SQUAMOUS EPITHELIAL CELL,UR FEW /LPF (FEW)
--- NOTE | 2021-05-18 21:13 | NUR ---
Patient brought to room 22 via wheelchair. She arrived accompanied by all source intelligence technician. Patient placed in gowns, as scrubs don't fit patient.
--- NOTE | 2021-05-18 22:38 | NUR ---
Patient up to restroom before sleeping. She denies any needs.
--- NOTE | 2021-05-18 23:35 | NUR ---
Patient sleeping on her right side. She is gently snoring with RR at 16 with no apparent distress.
--- NOTE | 2021-05-19 01:30 | NUR ---
Patient sleeping semi-prone. RR even and unlabored. No s/sx of distress.
--- NOTE | 2021-05-19 03:48 | NUR ---
Patient sleeping supine. No s/sx of distress noted.
--- NOTE | 2021-05-19 05:06 | NUR ---
Patient continues sleeping in supine position. No s/sx of distress noted.
--- NOTE | 2021-05-19 07:02 | NUR ---
Pt up to the bathroom, gait steady.
--- NOTE | 2021-05-19 07:14 | NUR ---
PACKET FAXED TO [facility].
--- NOTE | 2021-05-19 09:00 | NUR ---
One on one with patient to assessment completed at bedside. Pt presented guarded and answered questions minimally. Pt unsure of what medications she was taking. Pt reports current pharmacy is [facility] they had no record. Pt stated "I don't know then." Pt endorses suicidal thoughts, but didn't say a plan. Pt appears fatigued and was falling asleep during assessment. Pt denies A/VH.
--- NOTE | 2021-05-19 09:15 | NUR ---
Called [facility] for updated med list for patient. Pt PCP is Dr. Roblero. Faxed request to [phone].
--- NOTE | 2021-05-19 10:10 | NUR ---
[facility] AT BEDSIDE.
--- NOTE | 2021-05-19 11:10 | NUR ---
Pt resting comfortably, respirations even and unlabored..
--- NOTE | 2021-05-19 13:15 | NUR ---
Pt given hygiene bucket with warm water and soap. Pt is being discharged.
[2021-05-19 14:00] VITALS: BP 134/64
--- NOTE | 2021-05-19 14:06 | NUR ---
DISCHARGE NOTE: Pt was discharged from unit at 1330. Pt was A&Ox4. Pt had self bed bath before discharge, clean undergarments and socks were provided. Pt has a history of non compliance with her mental health. Pt is plugged in to [facility] and [facility]. Pt left with all personal belongings and home medications. [facility] cab was called to transport pt to [facility]
== END 2021-05-19 13:30 | disposition home or self-care (01) ==
LOC: ER 16:30
DX: R45.851 Suicidal ideations (principal); Z20.822 Contact with and (suspected) exposure to COVID-19; R07.89 Other chest pain; R11.2 Nausea with vomiting, unspecified; F32.A Depression, unspecified; M54.9 Dorsalgia, unspecified; I25.10 Atherosclerotic heart disease of native coronary artery without angina pectoris; I10 Essential (primary) hypertension; I25.2 Old myocardial infarction; F41.9 Anxiety disorder, unspecified; Z56.0 Unemployment, unspecified; Z59.00 Homelessness unspecified; Z79.899 Other long term (current) drug therapy; Z91.51 Personal history of suicidal behavior
CPT/HCPCS: 36415; 71045; 80053; 80305; 80320; 81001; 83735; 83880; 84484; 85025; 87635; 93005; 99285; C9803